=== PATIENT | female | born 1995 | race Caucasian/White ===

== ENCOUNTER 2019-07-12 11:22 | Emergency (ER) | payer BC ==
[~2019-07-12] VITALS: Ht 167.6 cm; Wt 79.4 kg
[2019-07-12 11:22] VITALS: BP 122/64
[2019-07-12] MEDS ORDERED: MELO7.5T29 PO (11:57)
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
== END 2019-07-12 12:00 | disposition home or self-care (01) ==
LOC: ER 11:22
DX: S03.42XA Sprain of jaw, left side, initial encounter (principal); W51.XXXA Accidental striking against or bumped into by another person, initial encounter; Y93.89 Activity, other specified; Y92.89 Other specified places as the place of occurrence of the external cause; Y99.8 Other external cause status
CPT/HCPCS: 99283